=== PATIENT | female | born 1940 | race American Indian/Alaskan Native ===

== ENCOUNTER 2017-01-19 12:10 | Outpatient (CLI) | payer MEDICARE | END 2017-01-19 12:11 | disposition home or self-care (01) | LOC: LAB 12:10 | PROVIDERS: ATTEND Internal Medicine Nephrology | DX: I12.9 Hypertensive chronic kidney disease with stage 1 through stage 4 chronic kidney disease, or unspecified chronic kidney disease (principal); N18.4 Chronic kidney disease, stage 4 (severe); E78.5 Hyperlipidemia, unspecified | CPT/HCPCS: 87086 ==

== ENCOUNTER 2020-06-23 14:40 | Emergency (ER) | payer MEDICARE ==
[2020-06-23] MEDS ORDERED: HYDROmorphone 1 MG/1 ML INJ IM ONE (15:41)
--- NOTE | 2020-06-23 15:42 | Emergency Department Report ---
ED General Adult HPI - General Chief complaint: Abdominal Pain Stated complaint: ABD PAIN Time Seen by Provider: 06/23/20 15:30 Source: patient, EMS Mode of arrival: Stretcher Limitations: No Limitations - History of Present Illness Initial comments: Patient is an 79-year-old female with history of abdominal metastatic cancer presents emergency department for evaluation of worsening of chronic pain. Pain is diffuse, severe, unrelieved by home medications. Patient denies nausea vomiting diarrhea, denies fever, denies change in symptoms from usual pain. - Related Data Home Medications Medication Instructions Recorded Confirmed Last Taken Carvedilol 1 tab PO BID 03/29/18 03/29/18 Unknown Cyanocobalamin (Vitamin B-12) 500 mcg PO DAILY 03/29/18 03/29/18 Unknown [Vitamin B-12] Digestive 8/L.acidoph/Pectin 1 each PO DAILY 03/29/18 03/29/18 Unknown [Digestive Enzymes Tablet] Digestive Enzymes Combo No.7 1 tab PO DAILY 03/29/18 03/29/18 Unknown [Superior Digestive Enzyme] Furosemide [Lasix] 20 mg PO 3XW 03/29/18 03/29/18 Unknown Lactobacillus Rhamnosus R0011 1 tab PO DAILY 03/29/18 03/29/18 Unknown [Probiotic Digestive Care] Lactobacillus Rhamnosus R0011 1 tab PO DAILY 03/29/18 03/29/18 Unknown [Probiotic Digestive Care] Omeprazole 1 cap PO DAILY 03/29/18 03/29/18 Unknown carvediloL [Coreg] 12.5 mg PO BID 03/29/18 03/29/18 Unknown Previous Rx's Medication Instructions Recorded Last Taken Type AtorvaSTATin 10 mg PO QHS #30 tablet 03/31/18 Unknown Rx Doxazosin [Cardura] 4 mg PO BID #60 tablet 03/31/18 Unknown Rx Lubiprostone [Amitiza] 24 mcg PO DAILY #30 03/31/18 Unknown Rx NIFEdipine XL [Procardia Xl] 90 mg PO QDAY #30 tablet 03/31/18 Unknown Rx Sodium Bicarbonate 650 mg PO TID tablet 03/31/18 Unknown Rx calcitrioL [Rocaltrol] 2 tab PO QDAY #60 capsule 03/31/18 Unknown Rx oxyCODONE /ACETAMINOPHEN [Percocet 1 tab PO Q8H PRN #30 tablet 03/31/18 Unknown Rx 5/325 mg] Allergies Allergy/AdvReac Type Severity Reaction Status Date / Time promethazine HCl Allergy Unknown Verified 06/23/20 15:07 [From Phenergan] ED Review of Systems ROS: Stated complaint: ABD PAIN Other details as noted in HPI Comment: All other systems reviewed and negative ED Past Medical Hx - Past Medical History Previous Medical History?: Yes Hx Hypertension: Yes Hx Renal Disease: Yes (stage 4) Hx of Cancer: Yes (Bladder) Hx Arthritis: Yes Hx Kidney Stones: Yes Additional medical history: Dialysis M&F - Surgical History Past Surgical History?: Yes Hx Cholecystectomy: Yes Hx Appendectomy: Yes Additional Surgical History: bilateral knee sx, back sx, left hip surgery, gall bladder removal, biopsy both breast (benign), hysterectomy - Social History Smoking Status: Former Smoker Substance Use Type: None - Medications Home Medications: Home Medications Medication Instructions Recorded Confirmed Last Taken Type Carvedilol 1 tab PO BID 03/29/18 03/29/18 Unknown History Cyanocobalamin (Vitamin B-12) 500 mcg PO DAILY 03/29/18 03/29/18 Unknown History [Vitamin B-12] Digestive 8/L.acidoph/Pectin 1 each PO DAILY 03/29/18 03/29/18 Unknown History [Digestive Enzymes Tablet] Digestive Enzymes Combo No.7 1 tab PO DAILY 03/29/18 03/29/18 Unknown History [Superior Digestive Enzyme] Furosemide [Lasix] 20 mg PO 3XW 03/29/18 03/29/18 Unknown History Lactobacillus Rhamnosus R0011 1 tab PO DAILY 03/29/18 03/29/18 Unknown History [Probiotic Digestive Care] Lactobacillus Rhamnosus R0011 1 tab PO DAILY 03/29/18 03/29/18 Unknown History [Probiotic Digestive Care] Omeprazole 1 cap PO DAILY 03/29/18 03/29/18 Unknown History carvediloL [Coreg] 12.5 mg PO BID 03/29/18 03/29/18 Unknown History AtorvaSTATin 10 mg PO QHS #30 tablet 03/31/18 Unknown Rx Doxazosin [Cardura] 4 mg PO BID #60 tablet 03/31/18 Unknown Rx Lubiprostone [Amitiza] 24 mcg PO DAILY #30 03/31/18 Unknown Rx NIFEdipine XL [Procardia Xl] 90 mg PO QDAY #30 tablet 03/31/18 Unknown Rx Sodium Bicarbonate 650 mg PO TID tablet 03/31/18 Unknown Rx calcitrioL [Rocaltrol] 2 tab PO QDAY #60 capsule 03/31/18 Unknown Rx oxyCODONE /ACETAMINOPHEN [Percocet 1 tab PO Q8H PRN #30 tablet 03/31/18 Unknown Rx 5/325 mg] ED Physical Exam - General Limitations: No Limitations General appearance: alert, in no apparent distress - Head Head exam: Present: atraumatic, normocephalic - Eye Eye exam: Present: normal appearance - ENT ENT exam: Present: mucous membranes moist - Neck Neck exam: Present: normal inspection - Respiratory Respiratory exam: Present: normal lung sounds bilaterally. Absent: respiratory distress - Cardiovascular Cardiovascular Exam: Present: regular rate, normal rhythm - GI/Abdominal GI/Abdominal exam: Present: soft, normal bowel sounds - Extremities Exam Extremities exam: Present: normal inspection - Back Exam Back exam: Present: normal inspection - Neurological Exam Neurological exam: Present: alert, oriented X3 - Psychiatric Psychiatric exam: Present: normal affect, normal mood - Skin Skin exam: Present: warm, dry, intact, normal color. Absent: rash ED Course Vital Signs 06/23/20 06/23/20 06/23/20 14:54 15:01 15:15 Temperature 98.8 F Pulse Rate 107 H 109 H 98 H Respiratory 20 19 11 L Rate Blood Pressure 179/67 169/55 O2 Sat by Pulse 100 100 97 Oximetry 06/23/20 06/23/20 06/23/20 15:31 15:45 16:01 Temperature Pulse Rate 96 H 115 H 98 H Respiratory 14 14 15 Rate Blood Pressure 179/67 160/70 160/70 O2 Sat by Pulse 100 96 100 Oximetry 06/23/20 06/23/20 06/23/20 16:15 16:31 16:45 Temperature Pulse Rate 110 H Respiratory 13 9 L 14 Rate Blood Pressure 185/86 185/86 174/63 O2 Sat by Pulse 100 98 99 Oximetry 06/23/20 06/23/20 06/23/20 17:01 17:15 17:31 Temperature Pulse Rate Respiratory 14 12 12 Rate Blood Pressure 174/63 174/63 O2 Sat by Pulse 95 97 95 Oximetry 06/23/20 06/23/20 06/23/20 17:45 18:01 18:15 Temperature Pulse Rate Respiratory 13 12 12 Rate Blood Pressure 184/84 184/84 168/67 O2 Sat by Pulse 91 96 99 Oximetry 06/23/20 18:31 Temperature Pulse Rate Respiratory Rate Blood Pressure 168/67 O2 Sat by Pulse 95 Oximetry - Reevaluation(s) Reevaluation #1: 06/23/20 17:06 Patient presents with paperwork from radiation oncology Dr. 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 Reevaluation #2: 06/23/20 19:17 Patient treated with Dilaudid IM. Patient reevaluated and in no acute distress, is offered further pain medication, declines, request to go home. Case discussed with patient at length with patient's daughter, copy of oncology ev aluation printed and reviewed with daughter with special attention to focus on pain management, possible palliative radiotherapy to bladder, and seemingly poor prognosis. Offered patient and daughter prescription for pain medication, states they have this at home. Advised to follow-up with oncology in 1 to 2 days. ED Medical Decision Making - Lab Data Vital Signs 06/23/20 06/23/20 06/23/20 14:54 15:01 15:15 Temperature 98.8 F Pulse Rate 107 H 109 H 98 H Respiratory 20 19 11 L Rate Blood Pressure 179/67 169/55 O2 Sat by Pulse 100 100 97 Oximetry 06/23/20 06/23/20 06/23/20 15:31 15:45 16:01 Temperature Pulse Rate 96 H 115 H 98 H Respiratory 14 14 15 Rate Blood Pressure 179/67 160/70 160/70 O2 Sat by Pulse 100 96 100 Oximetry 06/23/20 06/23/20 06/23/20 16:15 16:31 16:45 Temperature Pulse Rate 110 H Respiratory 13 9 L 14 Rate Blood Pressure 185/86 185/86 174/63 O2 Sat by Pulse 100 98 99 Oximetry 06/23/20 06/23/20 06/23/20 17:01 17:15 17:31 Temperature Pulse Rate Respiratory 14 12 12 Rate Blood Pressure 174/63 174/63 O2 Sat by Pulse 95 97 95 Oximetry 06/23/20 06/23/20 06/23/20 17:45 18:01 18:15 Temperature Pulse Rate Respiratory 13 12 12 Rate Blood Pressure 184/84 184/84 168/67 O2 Sat by Pulse 91 96 99 Oximetry 06/23/20 18:31 Temperature Pulse Rate Respiratory Rate Blood Pressure 168/67 O2 Sat by Pulse 95 Oximetry Critical care attestation.: If time is entered above; I have spent that time in minutes in the direct care of this critically ill patient, excluding procedure time. ED Disposition Clinical Impression: Chronic abdominal pain Disposition: DC-01 TO HOME OR SELFCARE Is pt being admited?: No Condition: Stable Instructions: Abdominal Pain (ED) Additional Instructions: Follow-up with PMD or oncology 1 to 2 days for reevaluation. Return to the emergency department for worsening symptoms. Referrals: PRIMARY CARE, [Primary Care Provider] - 3-5 Days
[2020-06-23 18:41] VITALS: BP 168/67
== END 2020-06-23 18:41 | disposition home or self-care (01) ==
LOC: ED 14:40
DX: R10.9 Unspecified abdominal pain (principal); G89.29 Other chronic pain; I10 Essential (primary) hypertension; M19.90 Unspecified osteoarthritis, unspecified site; N20.0 Calculus of kidney; Z90.49 Acquired absence of other specified parts of digestive tract; Z87.891 Personal history of nicotine dependence; Z79.899 Other long term (current) drug therapy; Z88.8 Allergy status to other drugs, medicaments and biological substances
CPT/HCPCS: 96372; 99283; J1170